=== PATIENT | female | born 1995 | race Caucasian/White ===

== ENCOUNTER 2018-03-20 17:02 | Emergency (ER) | payer SELFPAY ==
[~2018-03-20] VITALS: Ht 177.8 cm; Wt 104.3 kg
[2018-03-20] MEDS ORDERED: METRONIDAZOLE 500MG/NS 100ML 100 ML IV STA (17:33)
[2018-03-20] MEDS ORDERED: PIPER-TAZ 3.375 GM 50 ML IV STA (17:33)
[2018-03-20] MEDS ORDERED: SODIUM CHLORIDE 0.9% 1000ML 1,000 ML IV STA (17:33)
[2018-03-20] MEDS ORDERED: MORPHINE SULFATE INJ 4 MG/ML INJ IV STA (17:33)
[2018-03-20] MEDS ORDERED: ONDANSETRON HCL INJ 2 MG/ML VIAL IV STA (17:33)
[2018-03-20] MEDS ORDERED: MORPHINE SULFATE 2 MG/ML SYR ONE (18:08)
[2018-03-20 18:37] LABS: BASOPHILS # (AUTO) 0.1 (0.0-0.1); BASOPHILS % 0.5 % (0.0-1.0); EOSINOPHILS # (AUTO) 0.3 (0.0-0.4); EOSINOPHILS % 2.5 % (0.0-6.0); HEMOGLOBIN 12.5 g/dL (12.0-16.0); LYMPHOCYTES # (AUTO) 2.7 (1.0-3.2); LYMPHOCYTES % 24.6 % (18.0-39.1); MEAN CORPUSCULAR HEMOGLOBIN 25.3 pg (28-32); MEAN CORPUSCULAR HGB CONC 32.1 g/dL (31-35); MEAN CORPUSCULAR VOLUME 78.9 fL (81-99); MONOCYTES # (AUTO) 0.9 (0.2-0.8); MONOCYTES % 8.2 % (4.4-11.3); NEUTROPHILS # (AUTO) 6.9 (2.1-6.9); NEUTROPHILS % 63.8 % (38.7-80.0); PLATELET COUNT 308 x10e3/uL (140-360); RED BLOOD COUNT 4.94 x10e6/uL (3.6-5.1); RED CELL DISTRIBUTION WIDTH 14.7 % (11.7-14.4)
[2018-03-20 18:52] LABS: ALANINE AMINOTRANSFERASE 12 IU/L (0-55); ALBUMIN 4.1 g/dL (3.5-5.0); ALBUMIN/GLOBULIN RATIO 1.2 (0.8-2.0); ALKALINE PHOSPHATASE 79 IU/L (40-150); ANION GAP 12.7 mmol/L (8-16); BLOOD UREA NITROGEN 15 mg/dL (7-26); BUN/CREATININE RATIO 17 (6-25); CALCIUM 9.4 mg/dL (8.4-10.2); CARBON DIOXIDE 22 mmol/L (22-29); CHLORIDE 105 mmol/L (98-107); CREATININE, SERUM 0.87 mg/dL (0.57-1.11); EST GLOMERULAR FILTRATION RATE > 60 ML/MIN (60-); GLUCOSE 83 mg/dL (74-118); POTASSIUM 3.7 mmol/L (3.5-5.1); SODIUM 136 mmol/L (136-145)
--- NOTE | 2018-03-20 19:59 | Diagnostic Imaging Report ---
EXAM: CT PELVIS W DATE: 03/20/2018 5:33 PM INDICATION: \S\r/o perirectal abscess, BOIL ON BOTTOM \S\[id number] \S\1920 \S\Y COMPARISON: None TECHNIQUE: The abdomen and pelvis were scanned using a multidetector helical scanner. Coronal and sagittal reformations were obtained. IV Contrast: 100 ml Isovue 300/370 FINDINGS: Somewhat limited by streak artifact. GI TRACT: No wall thickening or evidence of obstruction. No perianal abscess. VESSELS: Unremarkable PERITONEUM/RETROPERITONEUM: No free air or fluid LYMPH NODES: No lymphadenopathy REPRODUCTIVE ORGANS/BLADDER: Unremarkable SOFT TISSUES: Small subcutaneous 1.7 x 1.2 cm collection along the left gluteal cleft with adjacent inflammatory changes. BONES: No suspicious bone lesions. IMPRESSION: Small subcutaneous abscess along the left gluteal cleft. Signed by: Dr Lesly Rivas MD on 03/20/2018 7:56 PM
[2018-03-20] MEDS ORDERED: IOPAMIDOL 370 MG/ML 200 ML INFUS..BTL INJ ONE (21:42)
[2018-03-20] MEDS ORDERED: SODIUM CHLORIDE 0.9% 50ML 50 ML ONE (21:42)
== END 2018-03-20 21:39 | disposition home or self-care (01) ==
LOC: ER 17:02
DX: L02.31 Cutaneous abscess of buttock (principal)
CPT/HCPCS: 10061; 36415; 72193; 80053; 84702; 85025; 99284; J2270; J2405; J2543; J7030; Q9967